=== PATIENT | female | born 2000 | race American Indian/Alaskan Native ===

== ENCOUNTER 2018-07-03 19:24 | Emergency (ER) | payer MEDICAID ==
[2018-07-03 20:22] VITALS: BMI 21.2
[2018-07-03] MEDS ORDERED: Sodium Chloride 0.9% 500 ML IV STA (20:30)
[2018-07-03 20:59] LABS: BASO # 0.02 K/mm3 (0.0-2.0); BASO % 0.4 % (0.0-3.0); EOS # 0.2 (0.0-0.7); EOS % 3.7 % (1.5-5.0); GRAN # 2.92 (1.4-6.5); GRAN % 57.7 % (50.0-68.0); HEMOGLOBIN 14.8 g/dL (12.0-16.0); LYMPH % 18.7 % (22.0-35.0); MEAN CELL VOLUME 92.9 fl (80.0-105.0); MEAN CORPUSCULAR HEMOGLOBIN 31.8 pg (25.0-35.0); MEAN CORPUSCULAR HGB CONC 34.2 g/dl (31.0-37.0); MEAN PLATELET VOLUME 8.7 fl (7.0-11.0); MONO % 19.5 % (1.0-6.0); RBC 4.66 10^6/uL (3.5-6.1); RED CELL DISTRIBUTION WIDTH 13.1 % (11.5-14.5); WHITE BLOOD COUNT 5.1 10^3/ul (4.5-11.0)
[2018-07-03] MEDS ORDERED: Iohexol 350 MG/100 ML VIAL ONE (20:59)
[2018-07-03 21:01] LABS: URINE BILIRUBIN NEGATIVE (NEGATIVE); URINE BLOOD NEGATIVE (NEGATIVE); URINE GLUCOSE (UA) NEGATIVE (NEGATIVE); URINE LEUKOCYTE ESTERASE NEGATIVE Leu/uL (NEGATIVE); URINE PROTEIN NEGATIVE mg/dL (<30 mg/dL); URINE UROBILINOGEN 0.2 E.U./dL (<1 E.U./dL)
[2018-07-03 21:02] LABS: URINE APPEARANCE CLEAR (CLEAR); URINE COLOR LIGHT YELLOW (YELLOW)
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
[2018-07-03 21:08] LABS: INR 1.05; PARTIAL THROMBOPLASTIN TIME 34.3 Seconds (25.1-36.5)
[2018-07-03 21:16] LABS: ALB/GLOB RATIO 1.3 (1.1-1.8); ALBUMIN 4.9 g/dL (3.0-4.8); ALT/SGPT 28 U/L (7-56); AST/SGOT 41 U/L (14-36); BLOOD UREA NITROGEN 14 mg/dL (7-21); CALCIUM 9.7 mg/dL (8.4-10.5); GFR NON-AFRICAN AMERICAN > 60
--- NOTE | 2018-07-04 08:42 | CT ---
Date of service: 07/03/2018 PROCEDURE: CT HEAD WITHOUT CONTRAST. HISTORY: headache COMPARISON: Not available TECHNIQUE: Axial computed tomography images were obtained through the head/brain without intravenous contrast. Radiation dose: Total exam DLP = 937.15 mGy-cm. This CT exam was performed using one or more of the following dose reduction techniques: Automated exposure control, adjustment of the mA and/or kV according to patient size, and/or use of iterative reconstruction technique. FINDINGS: HEMORRHAGE: No intracranial hemorrhage. BRAIN: No intracranial mass. No evidence of acute infarct. Preservation of muniz-white matter differentiation is noted. VENTRICLES: No hydrocephalus. CALVARIUM: No fracture. PARANASAL SINUSES: Chronic frontal, ethmoid and extensive chronic maxillary sinusitis MASTOID AIR CELLS: Unremarkable as visualized. No inflammatory changes. OTHER FINDINGS: None. IMPRESSION: Extensive chronic paranasal sinusitis. Otherwise unremarkable. The preliminary findings for this examination were reported by [facility] at 10:42 p.m. on 07/03/2018. There is concurrence of this report with the preliminary findings.
--- NOTE | 2018-07-04 08:57 | CARD ---
APPROVED REPORT Date of service: 07/03/2018 EKG Measurement Heart [id number] <Conclusion> Sinus rhythm with marked sinus arrhythmia Otherwise normal ECG
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
[2018-07-04 10:36] VITALS: BP 115/65; PULSE 81; RESP 16; TEMP 98; O2SAT 100
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
== END 2018-07-04 00:16 | disposition home or self-care (01) ==
LOC: ED 19:24
DX: S20.219A Contusion of unspecified front wall of thorax, initial encounter (principal); S05.12XA Contusion of eyeball and orbital tissues, left eye, initial encounter; Y04.0XXA Assault by unarmed brawl or fight, initial encounter; M25.562 Pain in left knee; R10.9 Unspecified abdominal pain; Z87.891 Personal history of nicotine dependence
CPT/HCPCS: 70450; 70486; 71260; 73562; 74177; 80053; 81003; 85025; 85610; 85730; 93005; 96361; 96374; 96375; 99284; J1885; J7040; Q9967